=== PATIENT | male | born 1975 | race Caucasian/White ===

== ENCOUNTER 2024-07-21 21:15 | Emergency (ER) | payer OTHER, SELFPAY ==
[2024-07-21 21:17] VITALS: BP 153/88; PULSE 97; O2SAT 99
--- NOTE | 2024-07-21 21:32 | PC.NURSE ---
patient seems moderately unaware of surroundings, t/w asked client if he is on any medications that requires levesl n d patient couldnt really answer.
[2024-07-21 21:34] VITALS: BP 146/92; PULSE 102; RESP 16; TEMP 36.8; O2SAT 98; BMI 26.6
[2024-07-21 22:27] LABS: Amphetamine Screen Urine Not Detected (Not Detect); Barbiturates, Urine Not Detected (Not Detect); Benzodiazepines Screen Urine Not Detected (Not Detect); Buprenorphine Scr Not Detected (Not Detect); Cannabinoid Screen Urine POSITIVE (Not Detect); Cocaine Screen Urine POSITIVE (Not Detect); Fentanyl, urine Not Detected (Not Detect); Methadone Screen, Urine Not Detected (Not Detect); Opiate Screen Urine Not Detected (Not Detect); Oxycodone Screen Urine Not Detected (Not Detect); Phencyclidine Screen Urine Not Detected (Not Detect)
--- NOTE | 2024-07-21 22:33 | PC.NURSE ---
awaiting staff to draw labs
[2024-07-21 23:15] LABS: MANUAL DIFF FLAG NO
[2024-07-21 23:16] LABS: Basophils Absolute Auto 0.1 X10*3/uL (0.0-0.2); Basophils Percent Auto 0.9 % (0-2); Eosinophils Absolute Auto 0.1 X10*3/uL (0.0-0.4); Eosinophils Percent Auto 1.6 % (0-4); Hematocrit 37.6 % (42.0-52.0); Hemoglobin 13.1 g/dl (14.0-18.0); Imm Gran Abs Auto 0.01 X10*3/uL (0.00-0.03); Imm Gran Pct Auto 0.1 % (0.0-0.4); Lymphocytes Absolute Auto 3.1 X10*3/uL (1.2-4.9); Lymphocytes Percent Auto 45.3 % (20-40); Mean Corpuscular HGB Conc 34.8 g/dl (31.0-36.0); Mean Corpuscular Hemoglobin 33.9 pg (27.0-33.0); Mean Corpuscular Volume 97.2 fL (80.0-98.0); Mean Platelet Volume 8.9 fL (9.4-12.4); Monocytes Absolute Auto 0.4 X10*3/uL (0.1-1.2); Monocytes Percent Auto 5.5 % (2-11); Neutrophils Absolute Auto 3.2 x10*3/uL (2.0-8.3); Neutrophils Percent Auto 46.6 % (45-73); Platelet Count 252 X10*3/uL (160-400); Red Blood Count 3.87 X10*6/uL (4.60-5.80); Red Cell Distribution Width 15.9 % (11.0-16.0); White Blood Count 6.9 X10*3/uL (4.8-10.8)
[2024-07-21 23:39] LABS: Ethanol 293 mg/dL; Magnesium 1.8 mg/dL (1.6-2.6)
[2024-07-21 23:47] LABS: Salicylate < 5.0 mg/dL (15-30)
[2024-07-21 23:52] VITALS: BP 141/71; PULSE 93; RESP 18; TEMP 37.1; O2SAT 97
[2024-07-21 23:52] LABS: Alanine Aminotransferase 29 U/L (0-40); Albumin Level 4.2 g/dL (3.5-5.0); Alkaline Phosphatase 111 U/L (39-117); Anion Gap 17 (12-20); Aspartate Amino Transferase 53 U/L (5-37); Bilirubin Total 0.3 mg/dL (0.0-1.0); Blood Urea Nitrogen 13 mg/dL (9-16); Calcium 9.2 mg/dL (8.4-10.2); Carbon Dioxide 28 mmol/L (22-29); Chloride 109 mmol/L (96-108); Estimated Glomerular Filt Rate > 60; Glucose Random 127 mg/dL (60-115); Potassium 2.9 mmol/L (3.3-5.1); Sodium 151 mmol/L (135-145); Total Protein 7.2 g/dL (6.5-8.0)
[2024-07-21 23:56] LABS: Acetaminophen LAB < 3 mcg/mL (<30)
[2024-07-22] MEDS: LORazepam 1 MG TABLET 2 MG PO ×2 (00:08→08:15)
[2024-07-22] MEDS: Potassium Chloride Packet 20 MEQ PACKET 40 MEQ PO (00:08)
--- NOTE | 2024-07-22 01:30 | ED_ITS ---
HPI - Psych General Chief Complaint: ETOH/Substance Use Stated Complaint: seeking rehab detox , hallucinations Time Seen by Provider: 07/22/24 01:17 Source: patient Mode of arrival: EMS Limitations: no limitations History of Present Illness ED Provider: Dr. Donn Portillo HPI Narrative: 48-year-old male with a history of alcohol and cocaine use disorder who presents emergency department for evaluation of acute alcohol intoxication and requesting evaluation for detox. 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 He denies being suicidal or homicidal. The patient states that he was drinking a large amount of gin and whiskey but can not quantify the amount. He states that his last drink was 18:00 hours on the day of arrival. Patient also states that he has been using a large amount of intranasal cocaine over the last week. He states he has had very little , intermittent, sleep secondary to his cocaine use. Patient states that his son is his healthcare proxy and he would like his son to be aware of his treatment. Related Data Home Medications ?Medication ?Instructions ?Recorded ?Confirmed No Known Home Meds 07/22/24 07/22/24 Allergies Allergy/AdvReac Type Severity Reaction Status Date / Time No Known Allergies Allergy Verified 07/21/24 21:35 Review of Systems 2 Review of Systems: Yes all other systems are reviewed and are negative [facility] Past Medical History [facility] Narrative: Social history: The patient does smoke cigarettes. He does drink alcohol and he has been using cocaine and smoking marijuana. Social History Social History Alcohol intake: current Alcohol intake frequency: 3 or more drinks per day Smoked in Last 30 Days: Yes Use of substances other than those prescribed or required for medical reasons: Yes Substance Use Type: Crack/Cocaine Advance Directives: No Advance Directives Information Provided: No Do you have a plan to hurt others: No Plan Physical Exam 2 Vital Signs: Vital Signs: Last Vital Signs Temp 98.4 F 07/22/24 12:54 Pulse 84 07/22/24 12:54 Resp 18 07/22/24 12:54 BP 156/94 H 07/22/24 12:54 Pulse Ox 99 07/22/24 12:54 O2 Del Method Room Air 07/22/24 12:50 BMI result Body Mass Index 26.6 Vital signs revealed an elevated blood pressure otherwise unremarkable Exam: General: Somnolent, falls asleep when not stimulated but does answer questions appropriately Head: Normocephalic, atraumatic EENT: PERRL, Lids normal, sclera normal, conjunctiva normal, nose normal , ears normal, throat without erythema or exudates Neck: Supple, no adenopathy Lung: breath sounds symmetric, no wheezing, rales or rhonchi Chest: symmetric movement, nontender Heart: regular rate and rhythm, normal S1, S2 no murmurs or rubs Abdomen: soft, non-tender, nondistended, normal bowel sounds Back: no vertebral tenderness, no CVAT Extremities: no deformities, moves all extremities symmetrically Neuro: Awake, alert, oriented, normal speech, cranial nerves intact, moves all extremities symmetrically Psych: Pleasant, cooperative Course Reevaluation(s) Reevaluation #1: Time: 12:48 Date: 07/22/24 Provider: Art Fierro PA-C Physician observation and did at 12:40 hours. Plan for discharge to [facility]. I ordered a dose of take home Narcan for the patient. Time: 12:48 Medications Administered Discontinued Medications Generic Name Dose Route Start Last Admin Trade Name Freq PRN Reason Stop Dose Admin Lorazepam 2 mg 07/21/24 23:56 07/22/24 08:15 Lorazepam 1 Mg Tablet PO 2 mg Q4H PRN Administration Alcohol Withdrawal, agitation, Potassium Chloride 40 meq 07/21/24 23:56 07/22/24 00:08 Potassium Chloride Packet 20 Meq Packet PO 07/21/24 23:57 40 meq ONCE ONE Administration Medical Decision Making Medical Decision Making [facility] Narrative: 48-year-old male with a history of alcohol and cocaine use disorder who presents emergency department for evaluation of acute alcohol intoxication and requesting evaluation for detox. 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 He denies being suicidal or homicidal. The patient states that he was drinking a large amount of gin and whiskey but can not quantify the amount. He states that his last drink was 18:00 hours on the day of arrival. Patient also states that he has been using a large amount of intranasal cocaine over the last week. He states he has had very little sleep secondary to his cocaine use. Patient states that his son is his healthcare proxy and he would like his son to be aware of his treatment. Vital signs revealed an elevated heart rate and elevated blood pressure otherwise unremarkable. Physical examination revealed that he was somnolent but did answer questions appropriately. Neurologic exam was nonfocal. Differential diagnosis: ?Includes but is not limited to acute alcohol intoxication, cocaine induced insomnia, depression, anxiety, anemia, electrolyte abnormalities, rhabdomyolysis Course: : Start physician observation 1:42 hours My interpretation patient's laboratory evaluation is as follows: Normocytic anemia with an H&H of 13.1 and 37.6. Low potassium 2.9 with an elevated chloride of 109-most likely secondary to his alcohol use disorder. Magnesium was normal at 1.8. Glucose elevated 126. Ethanol level elevated 293 consistent with a acute alcohol intoxication. Drug screen urine was positive for cocaine and THC. Salicylate and acetaminophen were below detectable limits. Patient's presentation is consistent with acute alcohol intoxication and I suspect that he has been very sleep deprived secondary to his cocaine use over the past week. Patient most likely has depression as well secondary to his recent job loss. Patient is not suicidal or homicidal and is requesting evaluation for detox from cocaine and alcohol. Therefore, the patient will remain in the emergency department Behavioral [facility] Unit until he can be evaluated by recovery team or care team to help get him into a detox program. 08:29 Patient was seen by the recovery clinician and she is going to do a bed search for a detox bed for the patient. At the end of my shift, the patient's care was turned over to my colleague, Dr. Rikki Casiano Admission/Observation Consideration of admission/observation: Escalation of care including admission/observation considered (Yes) Lab Data MDM Lab Attestation statement: I reviewed the patient's lab results. 07/21/24 23:11 07/21/24 23:11 Labs: Lab Results 07/21/24 07/21/24 Range/Units 21:49 23:11 WBC 6.9 (4.8-10.8) X10*3/uL RBC 3.87 L (4.60-5.80) X10*6/uL Hgb 13.1 L (14.0-18.0) g/dl Hct 37.6 L (42.0-52.0) % MCV 97.2 (80.0-98.0) fL MCH 33.9 H (27.0-33.0) pg MCHC 34.8 (31.0-36.0) g/dl RDW 15.9 (11.0-16.0) % Plt Count 252 (160-400) X10*3/uL MPV 8.9 L (9.4-12.4) fL Immature Gran % (Auto) 0.1 (0.0-0.4) % Neut % (Auto) 46.6 (45-73) % Lymph % (Auto) 45.3 H (20-40) % [place] % (Auto) 5.5 (2-11) % Eos % (Auto) 1.6 (0-4) % Baso % (Auto) 0.9 (0-2) % Lymph # (Auto) 3.1 (1.2-4.9) X10*3/uL [place] # (Auto) 0.4 (0.1-1.2) X10*3/uL Eos # (Auto) 0.1 (0.0-0.4) X10*3/uL Baso # (Auto) 0.1 (0.0-0.2) X10*3/uL Abs Immat Gran (auto) 0.01 (0.00-0.03) X10*3/uL Absolute Neuts (auto) 3.2 (2.0-8.3) x10*3/uL Absolute Nucleated RBC 0.000 (0.0-0.012) X10*3/uL Nucleated RBC % (auto) 0.0 (0.0-0.2) /100WBC Sodium 151 H (135-145) mmol/L Potassium 2.9 L* (3.3-5.1) mmol/L Chloride 109 H (96-108) mmol/L Carbon Dioxide 28 (22-29) mmol/L Anion Gap 17 (12-20) BUN 13 (9-16) mg/dL Creatinine 0.72 (0.5-1.4) mg/dL Estim Creat Clear Calc 116.0 Estimated GFR > 60 Random Glucose 127 H (60-115) mg/dL Calcium 9.2 (8.4-10.2) mg/dL Magnesium 1.8 (1.6-2.6) mg/dL Total Bilirubin 0.3 (0.0-1.0) mg/dL AST 53 H (5-37) U/L ALT 29 (0-40) U/L Alkaline Phosphatase 111 (39-117) U/L Total Creatine Kinase 501 H (38-174) U/L Total Protein 7.2 (6.5-8.0) g/dL Albumin 4.2 (3.5-5.0) g/dL Salicylates < 5.0 L (15-30) mg/dL Urine Opiates Screen Not Detected (Not Detect) Ur Buprenorphine Scrn Not Detected (Not Detect) ng/mL Ur Oxycodone Screen Not Detected (Not Detect) ng/mL Urine Methadone Screen Not Detected (Not Detect) ng/mL Urine Fentanyl Screen Not Detected (Not Detect) Acetaminophen < 3 (<30) mcg/mL Ur Barbiturates Screen Not Detected (Not Detect) Ur Phencyclidine Scrn Not Detected (Not Detect) Ur Amphetamines Screen Not Detected (Not Detect) U Benzodiazepines Scrn Not Detected (Not Detect) Urine Cocaine Screen POSITIVE H (Not Detect) U Marijuana (THC) Screen POSITIVE H (Not Detect) Ethyl Alcohol 293 mg/dL Chronic Conditions Patient?s care impacted by: Other (Alcohol use disorder, cocaine use disorder) Discharge Plan Discharge Clinical Impression: Alcoholic intoxication, Alcohol use disorder, Cocaine use disorder Patient Disposition: Xfer Other Transfer Details: COLT DETOX Instructions: Opioid Use Disorder (ED) Additional Instructions: Opiate use disorder You were seen in our Emergency Department today for treatment of opiate use disorder. You may have been dosed with medication for opiate use disorder (MOUD) in the form of suboxone or methadone. You may experience feeling some withdrawal symptoms and this is normal. The? dose in the Emergency Department is a starting dose and meant to be titrated up once you follow up with a clinic. Please do not feel discouraged, it is a process. The nurse has reviewed with you where to follow up and what information to bring with you, to continue treatment. You also may have been given naloxone (narcan) to take home with you. This medication is used to potentially treat opiate overdose. If you decide you want to stop or cut down on how much you?re using, you can call or walk into our outpatient Addiction Treatment office: [facility] (M-F 9am-5p) [address] [place] [address], [address] [phone] You may have been provided with safer injection?items, please take time to take care of YOU and your health. Use new supplies whenever possible to lessen the chances of infections and other illnesses.? ?If you need more supplies, please go [facility],? [address] [place], [place] you can call or text to coordinate delivery of safer supplies. You were also provided a list of several treatment providers in the area.? If you experience any worsening symptoms you cannot control please return to the ED or call 911. Please follow up at your next appointment. Things to look out for are fevers, chest pain, shortness of breath, severe pain, dizziness, fainting or any other concerns. Prescriptions: No Action No Known Home Meds Interventions: ED Discharge Assessment Last Done: 07/22/24 12:54 Discharge Date/Time: 07/22/24 13:05 Print Language: Micronesian
[2024-07-22 03:44] VITALS: BP 91/82; PULSE 75; RESP 16; O2SAT 97
[2024-07-22 05:22] VITALS: PULSE 70
--- NOTE | 2024-07-22 07:24 | PC.NURSE ---
ASSUMED CARE OF PT AT APPROXIMATELY 0645. EATING BREAKFAST. NO APPARENT DISTRESS AT THIS TIME. WILL FOLLOW [facility] PROTOCOL.
[2024-07-22 08:14] VITALS: BP 170/83; PULSE 81; RESP 18; TEMP 37.1; O2SAT 97
--- NOTE | 2024-07-22 12:39 | MHC.RECOVRN ---
Pt got accepted at [facility] for ATS. He is expected there awilda. He will pt transported there via [employer] called by t/w.
[2024-07-22 12:50] VITALS: BP 156/94; PULSE 84; RESP 18; TEMP 36.9; O2SAT 99
[2024-07-22 12:54] VITALS: BP 156/94; PULSE 84; RESP 18; TEMP 36.9; O2SAT 99
== END 2024-07-22 13:05 | disposition other institution (70) ==
PROVIDERS: Emergency Provider Emergency Medicine Emergency Medical Services
DX: F10.129 Alcohol abuse with intoxication, unspecified (principal); F14.90 Cocaine use, unspecified, uncomplicated; Y90.8 Blood alcohol level of 240 mg/100 ml or more; F12.10 Cannabis abuse, uncomplicated; F33.1 Major depressive disorder, recurrent, moderate; Z79.899 Other long term (current) drug therapy; Z51.81 Encounter for therapeutic drug level monitoring
CPT/HCPCS: 36415; 80053; 80143; 80179; 80307; 82550; 83735; 85025; 99285; S9485